=== PATIENT | female | born 1960 | race Caucasian/White ===

== ENCOUNTER 2018-08-25 19:15 | Emergency (ER) | payer BC, OTHER ==
[~2018-08-25] VITALS: Ht 167.6 cm; Wt 117.9 kg
[~2018-08-25 19:15] MED LIST: FLUT1DIS3 IH; FURO40TA5 PO; LEVO50TA8 PO; MOME17SP NS; MONT10TA22 PO; POTA20TA83 PO; PRAM0.253 PO; PROV10 PO
[2018-08-25 19:22] VITALS: BP_SYST 157
--- NOTE | 2018-08-25 19:30 | NUR ---
Patient to ER bed 06 to gown for evaluation. Side rails up.
--- NOTE | 2018-08-25 19:40 | NUR ---
Patient AOx4, presents to ER via wheelchair for complaint of right knee pain 01/07 since 1400 today. Patient states she is in the process of moving to [place] and when she was packing and moving a box from her bed, she felt a twist to right knee. Patient states I felt the knee "go boink" and now feels excrutiating pain to right medial knee with movement. Patient states "my miniscus popped out". No other symptoms or complaints. Patient states she does not have an assigned orthopedic doctor.
[2018-08-25] MEDS ORDERED: ALBU8.5H8 INH (19:47)
[2018-08-25] MEDS ORDERED: RANI-362 PO (19:47)
[2018-08-25] MEDS ORDERED: ATOR10TA68 PO (19:47)
[2018-08-25] MEDS ORDERED: OMEG-133 PO (19:47)
[2018-08-25] MEDS ORDERED: ALBU0.63 IH (19:47)
[2018-08-25] MEDS ORDERED: METF-380 PO (19:47)
[2018-08-25] MEDS ORDERED: CARI350T27 PO (19:47)
[2018-08-25] MEDS ORDERED: BUDE6HFA INH (19:47)
[2018-08-25] MEDS ORDERED: LORA10TA7 PO (19:47)
[2018-08-25] MEDS ORDERED: GABA-529 PO (19:47)
[2018-08-25] MEDS ORDERED: TRAM50TA2 PO (19:47)
[2018-08-25] MEDS ORDERED: LOSA50TA28 PO (19:47)
[2018-08-25] MEDS ORDERED: MAGN400C PO (19:47)
[2018-08-25] MEDS ORDERED: SOLI5TAB2 PO (19:47)
[2018-08-25] MEDS ORDERED: CALC-995 PO (19:47)
[2018-08-25] MEDS ORDERED: PANT20TA2 PO (19:47)
[2018-08-25] MEDS ORDERED: CELE200C PO (19:47)
[2018-08-25] MEDS ORDERED: CITA10TA17 PO (19:47)
[2018-08-25] MEDS ORDERED: CANA300T PO (19:47)
--- NOTE | 2018-08-25 19:48 | NUR ---
ER MD Cardona atr bedside for medical evaluation.
[2018-08-25] MEDS ORDERED: LIDOCAINE 1% 10 MG/ML, 20 ML MDV IJ ONE (20:15)
[2018-08-25 21:31] VITALS: BP_SYST 142
--- NOTE | 2018-08-25 21:31 | NUR ---
Patient given written and verbal discharge instructions and verbalizes understanding. ER MD discussed with patient the results and treatment provided. Patient in stable condition. ID arm band removed. Rx of Tramadol given. Patient educated on pain management and to follow up with PMD. Pain Scale 2/10 tolerable to patient. Opportunity for questions provided and answered. Medication side effect fact sheet provided.
== END 2018-08-25 21:31 | disposition home or self-care (01) ==
LOC: SED 19:15
DX: M25.562 Pain in left knee (principal); E11.9 Type 2 diabetes mellitus without complications; J44.9 Chronic obstructive pulmonary disease, unspecified; I10 Essential (primary) hypertension; Z79.899 Other long term (current) drug therapy; X50.9XXA Other and unspecified overexertion or strenuous movements or postures, initial encounter; Y93.89 Activity, other specified; Y92.89 Other specified places as the place of occurrence of the external cause; Y99.8 Other external cause status
CPT/HCPCS: 29505; 99283; J2001